=== PATIENT | female | born 1945 | race Caucasian/White ===

== ENCOUNTER → 2016-03-08 | Outpatient (CLI) | payer MEDICARE ==
--- NOTE | 2016-03-08 15:39 | WOMENS IMAGING REPORT ---
EXAM DESCRIPTION: BILAT SCREENING MAMMO W/CAD COMPLETED DATE/TIME: 03/08/2016 3:13 pm REASON FOR STUDY: ROUTINE BILATERAL SCREENING;Z12.31 Z12.31 ENCNTR SCREEN MAMMOGRAM FOR MALIGNANT N EOPLASM OF MAGD[place]ENA COMPARISON: 2009 to 2014 TECHNIQUE: Standard craniocaudal and mediolateral oblique views of each breast recorded using Bitmenua l acquisition. LIMITATIONS: None. FINDINGS: No masses, calcifications or architectural distortion. No areas of suspicion. Read with the assistance of CAD. .[facility] - R2 Cenova Version 1.3 .[facility] - R2 Cenova Version 1.3 .[facility] - R2 Cenova Version 2.4 .[facility] - R2 Cenova Version 2.4 .[facility] - R2 Actuarial Clerk Version 9.2 BREAST DENSITY: a. The breasts are almost entirely fatty. BIRAD: 1 NEGATIVE RECOMMENDATION: ROUTINE SCREENING COMMENT: PATIENT NOTIFIED BY LETTER. The [employer] recommends an annual screening mammogram for women aged 40 years or over. Each patient will receive a reminder prior to the anniversary date of her mammogram. The [employer] (A[employer]) has developed recommendations for screening MRI of the breast s in certain patient populations, to be used in conjunction with mammography. Breast MRI surveillanc e may be appropriate for women with more than 20% lifetime risk of developing breast cancer as deter mined by genetic testing, significant family history of the disease, or history of mantle radiation f or Hodgkins Disease. ACR Practice Guidelines 2008. TECHNICAL DOCUMENTATION: FINDING NUMBER: (1) ASSESSMENT: (1) JOB ID: [id number] [employer]- All Rights Reserved
== END ==
LOC: WI 12:55
PROVIDERS: ATTEND Nurse Practitioner Family
DX: Z12.31 Encounter for screening mammogram for malignant neoplasm of breast (principal)
CPT/HCPCS: 77067; G0202

== ENCOUNTER → 2016-05-24 | Outpatient (CLI) | payer MEDICARE | LOC: RAD 09:10 | PROVIDERS: ATTEND Physician Assistant | DX: R42 Dizziness and giddiness (principal); R26.9 Unspecified abnormalities of gait and mobility | CPT/HCPCS: 70551 ==

== ENCOUNTER → 2016-12-13 | Outpatient (CLI) | payer MEDICARE ==
--- NOTE | 2016-12-13 16:11 | RADIOLOGY REPORT (SQ) ---
EXAM DESCRIPTION: MRI LUMBAR SPINE WITHOUT COMPLETED DATE/TIME: 12/13/2016 2:51 pm REASON FOR STUDY: RADICULOPATHY, LUMBAR REGION (M54.16) M54.16 RADICULOPATHY, LUMBAR REGION R26.89 OTHER ABNORMALITIES OF GAIT AND MOBILITY COMPARISON: None. TECHNIQUE: Sagittal and Axial imaging includes T1, T2, STIR and gradient echo sequences. Coronal T2/ HASTE imaging. LIMITATIONS: None. FINDINGS: VISUALIZED UPPER ABDOMEN: Limited evaluation. No acute or suspicious findings suggested. SEGMENTATION: No transitional anatomy. The lowest well-developed disc space is labeled L5-S1. ALIGNMENT: Mild retrolisthesis of L1 over L2. Mild anterolisthesis of L4 over L5. VERTEBRAE: Intact. BONE MARROW: Normal. No marrow replacement or reactive changes. Benign hemangiomas in the T11 and T1 2 vertebral bodies DISC SIGNAL: Decreased T2 weighted intervertebral disc signal throughout the lumbar spine. Disc spac e loss of height at L1-2 and L5-S1 POSTERIOR ELEMENTS: Generally intact. No pars defect evident. HARDWARE: None in the spine. CORD AND CONUS: Normal in size and signal intensity. Conus at the T12 level. SOFT TISSUES: No aortic aneurysm seen. No bulky retroperitoneal adenopathy or mass. No paraspinal mas s or fluid. T11-12: Very mild posterior disc bulging is present. Mild facet hypertrophy. No central or foramin al stenosis. T12-L1: No central or foraminal stenosis L1-L2: Mild retrolisthesis of L1 over L2. Mild diffuse posterior disc bulging, mild bilateral facet and ligament hypertrophy. Borderline central canal narrowing. Mild bilateral inferior foraminal john rowing without exiting L1 nerve root impingement. L2-L3: Moderate central canal stenosis results from broad diffuse posterior disc bulge and very bulky bilateral facet and ligament hypertrophy. There is partial effacement of the CSF around the lumbar nerve roots best shown on axial T2 image 13 and sagittal image 9. Mild bilateral inferior foraminal narrowing is present without exiting L2 nerve root impingement. There is a right-sided facet synovia l cyst protruding into the right neural foramen abutting the right L2 nerve root as it exits the fora men, without significant mass effect. This cyst measures 8 x 5 mm in size on axial T2 image 11. L3-L4: Severe central canal stenosis is present, related to broad diffuse posterior disc bulge, bulky bilateral facet hypertrophy, and a 6 mm cyst protruding off the medial aspect of the right L3-4 face t joint. These changes are best shown on axial T2 weighted image 19, and sagittal T2 image 9. Small synovial cyst protrudes ventrally off the right L3-4 facet joint, causing moderate to marked right f oraminal narrowing. The small synovial measure about 2 mm in size, best shown on axial T2 image 18 t here is mild left foraminal narrowing without exiting left L3 nerve root impingement L4-L5: Mild central canal stenosis at L4-5 results from broad diffuse posterior disc bulge and very b ulky bilateral facet and ligament hypertrophy. There is flattening of the thecal sac into a triangul ar shape. This is best shown on axial T2 image 26. There is mild bilateral inferior foraminal narro wing without exiting L4 nerve root impingement. L5-S1: Broad diffuse posterior disc bulge and bony spurring right greater than left, bulky right and moderate left facet hypertrophy. Mild central canal narrowing with flattening of the thecal sac into a triangular shape. There is moderate right and mild left foraminal narrowing without exiting L5 ne rve root impingement SACRUM: Visualized upper sacrum intact. OTHER: No other significant findings. IMPRESSION: Severe central canal stenosis at L3-4 Moderate central canal stenosis at L2-3 Mild central canal stenosis at L4-5 Significant right-sided foraminal narrowing at L3-4 TECHNICAL DOCUMENTATION: JOB ID: [id number] [employer]- All Rights Reserved
== END ==
LOC: RAD 13:20
PROVIDERS: ATTEND Family Medicine
DX: M54.16 Radiculopathy, lumbar region (principal); R26.89 Other abnormalities of gait and mobility
CPT/HCPCS: 72148